=== PATIENT | female | born 1985 | race Caucasian/White ===

== ENCOUNTER 2017-09-28 15:33 | Outpatient (CLI) | END 2017-09-28 18:50 | disposition home or self-care (01) ==

== ENCOUNTER 2017-10-07 12:15 | Outpatient (CLI) | END 2017-10-07 15:38 | disposition home or self-care (01) ==

== ENCOUNTER 2017-10-10 08:53 | Outpatient (CLI) | END 2017-10-10 12:02 | disposition home or self-care (01) ==

== ENCOUNTER 2017-10-21 22:17 | Inpatient (IN) | END 2017-10-24 12:35 | disposition home or self-care (01) | DRG 774 ==